=== PATIENT | male | born 1940 | race Caucasian/White ===

== ENCOUNTER 2022-04-05 11:42 | Outpatient (REF) | payer MEDICARE, OTHER, SELFPAY ==
[2022-04-05 12:41] LABS: Influenza A PCR NEGATIVE (Negative); Influenza B PCR NEGATIVE (Negative); Resp Syncy Virus RNA Qual PCR NEGATIVE (Negative); SARS COV2 PCR INHOUSE NEGATIVE (Negative)
== END 2022-04-05 11:43 | disposition home or self-care (01) ==
LOC: HO.LNP 11:42
PROVIDERS: Visit Provider Nurse Practitioner Family
DX: Z20.822 Contact with and (suspected) exposure to COVID-19 (principal); J06.9 Acute upper respiratory infection, unspecified
CPT/HCPCS: 0241U

== ENCOUNTER 2023-03-22 09:42 | Emergency (ER) | payer MEDICARE, OTHER, SELFPAY ==
--- NOTE | ~2023-03-22 | XR_ITS ---
EXAMINATION: XR CHEST CLINICAL INFORMATION: Cough and shortness of breath. COMPARISON: Chest x-ray to. TECHNIQUE: 2 views of the chest were obtained. FINDINGS: Large hiatal hernia. The cardiomediastinal silhouette is stable. The lungs are mildly hypoexpanded. No consolidation or effusion. No pulmonary edema. Degenerative changes in the shoulders. XR/XR chest 2V IMPRESSION: Large hiatal hernia. No focal pneumonia.
[2023-03-22 09:54] VITALS: BP 184/93; PULSE 66; RESP 20; TEMP 37; O2SAT 97; BMI 24.5
[2023-03-22 10:53] LABS: Influenza A PCR NEGATIVE (Negative); Influenza B PCR NEGATIVE (Negative); Resp Syncy Virus RNA Qual PCR NEGATIVE (Negative); SARS COV2 PCR INHOUSE NEGATIVE (Negative)
--- NOTE | 2023-03-22 12:21 | ED_ITS ---
HPI - URI/Sore Throat General Chief Complaint: Upper Respiratory Symptoms Stated Complaint: flu like symptoms/ chest pain Time Seen by Provider: 03/22/23 10:45 Source: patient Mode of arrival: ambulatory Limitations: no limitations History of Present Illness HPI Narrative: 82 yo male with history of hiatal hernia, HTN, GERD here with complaints of 1 week of chest congestion, body aches, cough and subjective fevers. Patient reports chronic shortness of breath due to a large hiatal hernia. He does not feel this is worsened. No chest pain, leg swelling or leg pain. Related Data Home Medications Medication Instructions Recorded Confirmed doxazosin 4 mg tablet 4 mg PO DAILY 05/04/21 04/04/22 pantoprazole 40 mg tablet,delayed 40 mg PO DAILY 05/04/21 04/04/22 release allopurinol 100 mg tablet 100 mg PO DAILY 08/09/21 04/04/22 lisinopril 10 mg tablet 10 mg PO DAILY 01/10/22 04/04/22 Previous Rx's Medication Instructions Recorded fluticasone propionate 50 1 spray intranasal DAILY #16 grams 06/27/22 mcg/actuation nasal spray,suspension cefpodoxime 200 mg tablet 200 mg PO BID #14 tabs 03/22/23 Allergies Allergy/AdvReac Type Severity Reaction Status Date / Time No Known Allergies Allergy Verified 03/22/23 09:56 Review of Systems Review of Systems: Yes all other systems are reviewed and are negative Constitutional: Constitutional: Reports no additional constitutional complaints, Reports body ache(s), Denies chills, Denies fever(s), Reports headache(s) and Denies weakness Eyes: Eyes: Reports no additional eye complaints and Denies change in vision ENT: Reports system reviewed and no additional complaints, except as documented, Denies dizziness, Reports headache(s), Denies nasal congestion, Denies nasal discharge and Denies neck pain Cardiovascular: Cardiovascular: Reports no additional cardiovascular complaints, Denies chest pain, Denies leg edema and Denies dyspnea Respiratory: Respiratory: Reports no additional respiratory complaints, Reports cough and Denies dyspnea Gastrointestinal: Gastrointestinal: Reports no additional gastrointestinal complaints, Denies abdominal pain, Denies diarrhea, Denies nausea and Denies vomiting Genitourinary: Genitourinary: Denies urinary incontinence Musculoskeletal: Musculoskeletal: Reports no additional musculoskeletal complaints, Denies back pain, Denies arthralgias, Denies joint swelling, Denies neck pain, Denies numbness and Denies tingling Integumentary/Breasts: Skin/Breast: Reports system reviewed and no additional complaints, except as docu and Denies rash Neurologic: Reports system reviewed and no additional complaints, except as documented, Denies Abnormal speech present, Denies dizziness, Reports headache(s), Denies numbness, Denies tingling and Denies weakness PMF Past Medical History Attestation statement: The following information was validated with the patient. 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[employer] ) Current occupational exposures/hazards: No Cognitive needs: No Hearing needs: No Vision needs: No Physical Exam Vital Signs: Vital Signs: Last Vital Signs Temp 98.6 F 03/22/23 09:54 Pulse 86 03/22/23 13:14 Resp 18 03/22/23 13:14 BP 184/93 H 03/22/23 09:54 Pulse Ox 97 03/22/23 09:54 O2 Del Method Room Air 03/22/23 09:54 BMI result Body Mass Index 24.5 Const: General: cooperative, healthy appearing, comfortable and no acute distress Orientation/consciousness: patient oriented x3 Limitations: no limitations HEENT: Head: Yes normal to inspection Ears: hearing grossly normal bilaterally General nose exam: Normal external nose present Face and sinus: Yes normal facial exam Mouth: Normal oral and palatal mucosa present Throat: Yes posterior oropharynx normal Eyes: General: appearance normal, both eyes and all related structures Pupils: Equal, round and reactive pupils present Neck: Neck: Yes normal visual inspection Chest: Chest palpation & inspection: normal inspection of the chest Resp: Effort & Inspection: normal respiratory effort Auscultation: rhonchi and wheezes Cardio: Rate: regular rate Rhythm: regular rhythm Peripheral pulses: Peripheral pulses 2+ throughout GI: Inspection: Yes normal to inspection Palpation (GI): Soft to palpation and nontender Auscultation: normal bowel sounds Back/Spine/Pelvis: Thoracic/Lumbar Spine: thoracic and lumbar spine normal to inspection Skin: General skin exam: no rashes or lesions noted Neuro: General: patient oriented x3, no focal motor deficits and normal sensation to monofilament Cranial nerves: Yes Equal, round and reactive pupils present Cognition (Neuro): normal cognition Speech: No Abnormal speech present Gait exam (Neuro): Normal gait present Motor exam (neuro): 5/5 motor strength present throughout Extrem: General: Yes normal to inspection, Yes no pedal edema and Yes no calf tenderness Course Course Course Narrative: X-ray shows a large hiatal hernia which is known. No focal pneumonia. Based on patient's clinical exam he may have C a P. Therefore I will treat him with a course of antibiotics and recommend he use albuterol p.r.n.. Reviewed worrisome signs and symptoms of when to return to the emergency room. Comfortable plan for discharge home. Medications Administered Discontinued Medications Generic Name Dose Route Start Last Admin Trade Name Freq PRN Reason Stop Dose Admin Albuterol Sulfate 2 puff 03/22/23 12:39 03/22/23 13:11 Albuterol Sulfate 90 Mcg 8 Gm Inhaler INHALE 03/22/23 12:40 2 puff ONCE ONE Administration Medical Decision Making Medical Decision Making [facility] Narrative: 82 yo male with history of hiatal hernia, HTN, GERD here with complaints of 1 week of chest congestion, body aches, cough and subjective fevers. Patient reports chronic shortness of breath due to a large hiatal hernia. He does not feel this is worsened. No chest pain, leg swelling or leg pain. -Wheezing/rhonchi LLL WIll need viral testing, CXR Differential Diagnosis Differential Diagnoses: The differential diagnosis associated with the presentation includes Pneumonia, viral syndrome low concern for PE- no hypoxia or tachypnea, no clinical findings concerning for DVT Admission/Observation Consideration of admission/observation: Escalation of care including admission/observation considered no hypoxia or tachypnea. Patient not requiring supplemental oxygen. No systemic signs or symptoms concerning for infection. Lab Data [facility] Lab Attestation statement: I reviewed the patient's lab results. Labs: Lab Results 03/22/23 Range/Units 09:59 Influenza Type A (PCR) NEGATIVE (Negative) Influenza Type B (PCR) NEGATIVE (Negative) RSV RNA Qual (PCR) NEGATIVE (Negative) SARS-CoV-2 RNA (RT-PCR) NEGATIVE (Negative) Independent Interpretation I performed an independent interpretation of an: Plain X-Ray Interpretation: I independently reviewed the x-ray and agree with the radiology report. Radiology Impression Discussion of test interpretation with radiology: I have reviewed the radiologist's reading. Radiologist Impression: [address] [address] XRay Report Signed Patient: Buzz Rosales MR#: [id number] : 1940 Acct:[id number] Age/Sex: 82 / M ADM Date: 03/22/23 Loc: HO.ED Attending Dr: Ordering Physician: Toby Gonzalez MD Date of Service: 03/22/23 Procedure(s): XR chest 2V Accession Number(s): [id number] cc: Toby Gonzalez MD; Syed Mccormick MD~ EXAMINATION: XR CHEST CLINICAL INFORMATION: Cough and shortness of breath. COMPARISON: Chest x-ray to. TECHNIQUE: 2 views of the chest were obtained. FINDINGS: Large hiatal hernia. The cardiomediastinal silhouette is stable. The lungs are mildly hypoexpanded. No consolidation or effusion. No pulmonary edema. Degenerative changes in the shoulders. XR/XR chest 2V IMPRESSION: Large hiatal hernia. No focal pneumonia. Discharge Plan Discharge Clinical Impression: Bronchitis Patient Disposition: Home, Self-Care Instructions: Acute Bronchitis (ED) Additional Instructions: use the inhaler 2 puffs every 4 hours as needed for cough or wheezing Take the antibiotics as prescribed For any continued symptoms please follow-up with your primary care doctor. Please return here for any worsening symptoms. Prescriptions: New cefpodoxime 200 mg tablet 200 mg PO BID Qty: 14 0RF Rx Instructions: must administer with a meal/food No Action fluticasone propionate 50 mcg/actuation spray,suspension 1 spray intranasal DAILY Qty: 16 1RF Rx Instructions: administer into each nostril pantoprazole 40 mg tablet,delayed release (DR/EC) 40 mg PO DAILY doxazosin 4 mg tablet 4 mg PO DAILY allopurinol 100 mg tablet 100 mg PO DAILY lisinopril 10 mg tablet 10 mg PO DAILY Referrals: Syed Mccormick MD [Primary Care Provider] - 5 days
--- NOTE | 2023-03-22 12:48 | PC.NURSE ---
respiratory called for teaching
[2023-03-22] MEDS: Albuterol Sulfate 90 MCG 8 GM INHALER 2 PUFF INHALE (13:11)
[2023-03-22 13:14] VITALS: PULSE 86; RESP 18; O2SAT 97
== END 2023-03-22 13:46 | disposition home or self-care (01) ==
PROVIDERS: Emergency Provider Emergency Medicine; PCP Family Medicine
DX: J40 Bronchitis, not specified as acute or chronic (principal); Z20.822 Contact with and (suspected) exposure to COVID-19; Z20.828 Contact with and (suspected) exposure to other viral communicable diseases; I10 Essential (primary) hypertension; K21.9 Gastro-esophageal reflux disease without esophagitis
CPT/HCPCS: 0241U; 71046; 94640; 99283; 99284

== ENCOUNTER 2023-08-12 13:15 | Outpatient (AMB) | payer MEDICARE, OTHER, SELFPAY ==
--- NOTE | 2023-08-12 13:22 | A.SPINEOV_ITS ---
Intake Visit Reasons: low back pain Intake Note: Mr. Rosales is here today c/o low back pain. Expressive Art Therapist Required: No Allergies No Known Allergies Allergy (Verified 03/22/23 09:56) Assessment & Plan Assessment & Plan (1) Spinal stenosis, lumbar region without neurogenic claudication: Code(s): M48.061 - Spinal stenosis, lumbar region without neurogenic claudication Category: Medical Plan Dear colleague On 08/12/2023 I saw Buzz Rosales for 2nd opinion. He self-referred with a chief complaint of low back pain and right leg weakness. HPI: This 82-year-old male had a lumbar decompression done by Dr. Leslie 3 years ago for back pain. The MRI shows an L3-4 and L4-5 decompression. He was relatively pain-free for 3 years when the back pain started to return. He had 3 epidural steroid injections and after the last 1 he developed bilateral proximal leg weakness, right more than left. He could not ambulate for 1 month. Over time the weakness gradually recovered but never fully. He has difficulty coming out of a chair due to proximal leg weakness. He had a mild drop foot which recovered. His 2nd complaint is back pain with walking and standing. He constantly has to walk in a flexed position to get some comfort. Sitting down is the best position. Takes extra-strength Tylenol for the back pain. He still works at [employer]: No major medical problems Medications: Tylenol p.r.n. Allergies: NKDA Social history: Nonsmoker Physical Exam: Pleasant male. He is unable to get out of a chair with his arms crossed. On individual testing there is no clear motor deficit. Sensory exam is intact. No pathological reflexes. He ambulates in a flexed position. Radiological Studies: MRI done at [facility] on 05/05/2023 shows an auto fusion of L4-5 and L1-L2. There is ongoing stenosis at L2-3. There is multilevel foraminal stenosis and multilevel degenerative disc disease. Impression/Plan: This patient is suffering from back pain without neurogenic claudication and a right L4 radiculopathy with weakness. I explained to the patient that a lumbar decompression for back pain only without radiation down his legs with walking and standing has very unpredictable results. I also do not have a surgical solution for his right L4 weakness. I do think that this should recover Barton over time. I explained his pathophysiology of the hand of the MRI findings. I answered all questions. Thank you for allowing me to participate in your patients care. total time spent was 50 minutes in counseling ,coordination of plan, personal review of imaging, and subsequent plan Remi Freeman MD, PhD Spine Fellowship Trained Neurosurgeon Director, [facility] Coding Level of Care Code New Pt Level 4 (37417) Diagnoses Spinal stenosis, lumbar region without neurogenic claudication M48.061
== END 2023-08-12 14:14 | disposition home or self-care (01) ==
PROVIDERS: PCP Family Medicine; Visit Provider Neurological Surgery
DX: M48.061 Spinal stenosis, lumbar region without neurogenic claudication (principal)
CPT/HCPCS: 99204

== ENCOUNTER → 2023-08-12 13:15 | Outpatient (BNVA) | payer MEDICARE, OTHER, SELFPAY | PROVIDERS: PCP Family Medicine; Visit Provider Neurological Surgery | DX: M54.50 Low back pain, unspecified (principal); M48.061 Spinal stenosis, lumbar region without neurogenic claudication | CPT/HCPCS: 99202 ==

== ENCOUNTER 2023-08-19 09:23 | Emergency (ER) | payer MEDICARE, OTHER, SELFPAY ==
--- NOTE | ~2023-08-19 | CT_ITS ---
EXAMINATION: CT CHEST WITHOUT CONTRAST CLINICAL INFORMATION: Chest trauma. Left-sided rib pain. COMPARISON: Chest x-ray (August 19, 2023 TECHNIQUE: Multidetector volumetric CT imaging of the chest was done. Axial MIP volume rendering provided. Sagittal and coronal reformatted images were obtained. This CT examination was performed using dose optimization techniques as appropriate, variously including the following: *Automated exposure control *Adjustment of mA and/or kV according to patient size (this includes techniques or standardized protocols for targeted exams where dose is matched to indication/reason for exam; i.e. extremities or head) *Use of iterative reconstruction technique DLP: 250 mGy-cm FINDINGS: LUNGS: Compressive atelectasis/consolidation with air bronchograms of the left lower lobe adjacent to the large hiatal hernia. Central bronchial airways are open. MEDIASTINUM: Right lung normally aerated. Large hiatal hernia containing most of the stomach. A loop of transverse colon. Heart size is normal. No pericardial effusion. Thoracic aorta unremarkable. CORONARY ARTERY CALCIFICATION: Coronary calcifications are present. PLEURA: No pleural effusion. AXILLA: No lymphadenopathy. UPPER ABDOMEN: Large hiatal hernia. No acute abnormality upper abdomen. No focal lesion visualized solid organs of the upper abdomen OSSEOUS STRUCTURES: No acute displaced rib fractures. There is subtle cortical buckling of the anterior seventh through 10th ribs which could be nondisplaced fractures. 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 Moderate to marked degenerative changes of the glenohumeral joints bilaterally. CT/CT chest wo IV con IMPRESSION: 1. Compressive atelectasis/consolidation with air bronchograms left lower lobe adjacent to the large hiatal hernia. 2. Large hiatal hernia containing most of the stomach and a loop of transverse colon. 3. No acute displaced rib fractures. There is subtle cortical buckling of the anterior seventh through 10th ribs which could be nondisplaced fractures. Fleischner guidelines were followed.
--- NOTE | ~2023-08-19 | XR_ITS ---
EXAMINATION: XR RIBS, LEFT CLINICAL INFORMATION: Left-sided pain COMPARISON: Chest radiograph 03/22/2023 TECHNIQUE: 3 views of the left ribs were obtained. FINDINGS: Large hiatal hernia containing bowel. No change. Left ribs intact. Advanced degenerative change in the left and right shoulder. Lungs grossly clear. No pneumothorax. XR/XR ribs LT min 3V w CXR1V IMPRESSION: No acute findings.
[2023-08-19 09:32] VITALS: BP 194/99; PULSE 63; RESP 18; TEMP 36.7; O2SAT 97; BMI 24.5
--- NOTE | 2023-08-19 13:26 | ED_ITS ---
HPI - General Adult General Chief complaint: General Medical Stated complaint: ? Broken Rib L Side Time Seen by Provider: 08/19/23 13:26 Source: patient Mode of arrival: ambulatory Limitations: no limitations History of Present Illness HPI narrative: This is an 82-year-old male history of hiatal hernia, hypertension, gout presenting to the emergency department complaints of left-sided rib pain since Friday, patient reports he reached into his washer, slipped and fell onto his left side since then has been having rib pain he states he thinks he heard a crack when this happened pain is worse with movement, laughing and coughing better at rest. Denies chest pain, shortness of breath, nausea, vomiting, abdominal pain, headache, vision changes, dizziness, weakness. Patient not on blood thinners. Patient requesting to leave from the moment he arrives he states it is taking too long. Related Data Home Medications ?Medication ?Instructions ?Recorded ?Confirmed doxazosin 4 mg tablet 4 mg PO DAILY 05/04/21 04/04/22 pantoprazole 40 mg tablet,delayed 40 mg PO DAILY 05/04/21 04/04/22 release allopurinol 100 mg tablet 100 mg PO DAILY 08/09/21 04/04/22 lisinopril 10 mg tablet 10 mg PO DAILY 01/10/22 04/04/22 Previous Rx's ?Medication ?Instructions ?Recorded fluticasone propionate 50 1 spray intranasal DAILY #16 grams 06/27/22 mcg/actuation nasal spray,suspension cefpodoxime 200 mg tablet 200 mg PO BID #14 tabs 03/22/23 acetaminophen 325 mg capsule 650 mg (2 x 325 mg) PO Q4H PRN 08/19/23 (Tylenol) pain #30 caps doxycycline hyclate 100 mg capsule 100 mg PO BID 7 days #14 caps 08/19/23 lidocaine 5 % topical patch 1 patch topical DAILY PRN pain #15 08/19/23 ea Allergies Allergy/AdvReac Type Severity Reaction Status Date / Time No Known Allergies Allergy Verified 08/19/23 09:36 Review of Systems Review of Systems: Yes all other systems are reviewed and are negative COUNT INCLUDES THE [facility] Past Medical History Attestation statement: The following information was validated with the patient. 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 Oriented X3.? No acute distress.? Head: Normocephalic, atraumatic, no step-offs or deformities Eyes: Pupils equal, round and reactive to light.? ENT: Pharynx normal.? Neck: Normal inspection.? Neck supple.? CVS: Normal heart rate and rhythm.? Pulses normal.?+ TTP to lateral aspect of left ribs 3-7 no overlying skin changes. No signs of flail chest or paradoxical breathing. Respiratory: No respiratory distress.? Breath sounds normal.? Abdomen: Soft and nontender.? Skin: Skin warm and dry.? Normal skin color.? Normal skin turgor.? Extremities: No lower extremity edema.? No calf ttp. 5/5 strength to bilateral upper and lower extremities Back: No midline tenderness, no C-spine tenderness, full range of motion, no CVA tenderness bilaterally Neuro: Oriented X 3.? No motor deficit.? No sensory deficit. CN 2-12 intact Course Course Course Narrative: This case was discussed with thoracic surgery who does recommend admission as well as consult to anesthesia for epidural for pain control. However patient unwilling to stay Reevaluation(s) Reevaluation #1: X-ray of the ribs no acute findings. CT scan pending. Time: 13:33 Reevaluation #2: CT scan showing compressive atelectasis/consolidation with air bronchograms left lower lobe will treat with antibiotics just in case as he does have presumed rib fractures, large hiatal hernia containing most of the stomach and loop of transverse colon, no acute displaced rib fractures however there is cortical buckling of the anterior 7th through 10th ribs which could represent nondisplaced fractures this is likely given the scenario. I did explain to patient that he should stay in the hospital for observation, pulmonary toilet, and possible antibiotics for developing pneumonia, he refuses to stay he verbalized understanding of risks and tells me it has a risk and willing to take . Patient was given an incentive spirometer and chemistry technologist as well as respiratory went over proper use of this. Patient verbalizes understanding and requests to leave. Will be leaving against medical advice. Educated patient on diagnosis and treatment plan, answered all question, patient verbalizes understanding. At this time patient will be discharged home, advised to return with new or worsening symptoms. Educated on worrisome signs and symptoms and when to return. At this time I feel comfortable discharge home. Time: 15:43 Medications Administered Discontinued Medications Generic Name Dose Route Start Last Admin Trade Name Mary PRN Reason Stop Dose Admin Acetaminophen 975 mg 08/19/23 13:33 08/19/23 14:16 Acetaminophen 325 Mg Tablet PO 08/19/23 13:34 975 mg ONCE ONE Administration Lidocaine 1 patch 08/19/23 13:33 08/19/23 14:16 Lidocaine 4 % Patch Adh..Patch TRANSDERMA 08/19/23 13:34 1 patch ONCE ONE Administration Protocol Lisinopril 10 mg 08/19/23 14:11 08/19/23 14:15 Lisinopril 10 Mg Tablet PO 08/19/23 14:12 10 mg ONCE ONE Administration Protocol Medical Decision Making Medical Decision Making [facility] Narrative: 1331 82 yo m presents w/ left sided rib pain since friday slipped into his washing machine and is having pain since then Physical exam significant for TTP to lateral aspect of left ribs 3-7 no overlying skin changes. No signs of flail chest or paradoxical breathing. History and physical exam concerning for contusion versus rib fracture/dislocation. Unlikely flail chest, pneumothorax, hemorrhage. No head strike or loss of consciousness unlikely intracranial hemorrhage, stroke, posterior stroke. No other signs of traumatic injury to chest, abdomen or pelvis. Plan imaging Differential Diagnosis Differential Diagnoses: The differential diagnosis associated with the presentation includes History and physical exam concerning for contusion versus rib fracture/dislocation. Unlikely flail chest, pneumothorax, hemorrhage. No head strike or loss of consciousness unlikely intracranial hemorrhage, stroke, posterior stroke. No other signs of traumatic injury to chest, abdomen or pelvis. Admission/Observation Consideration of admission/observation: Escalation of care including admission/observation considered No indication Independent Interpretation I performed an independent interpretation of an: Plain X-Ray (XR/XR ribs LT min 3V w CXR1V IMPRESSION: No acute findings. ) and CT Scan (CT/CT chest wo IV con IMPRESSION: 1. Compressive atelectasis/consolidation with air bronchograms left lower lobe adjacent to the large hiatal hernia. 2. Large hiatal hernia containing most of the stomach and a loop of transverse colon. 3. No acute displaced rib fractures. There is subtle cortic) Radiology Impression Discussion of test interpretation with radiology: I have reviewed the radiologist's reading. External Record Review External record reviewed: Inpatient record, Office record, Outpatient record, Prior outpatient labs, Prior outpatient radiology, Primary care record and Outside ED record Chronic Conditions Patient?s care impacted by: Hypertension and Other (Gout, spinal stenosis) Critical Care Time Critical Care Time Critical Care Time: Yes Total Critical Care Time: 35 Attestation: I attest to this time spent taking care of the patient, obtaining history, physical, reviewing labs, imaging, speaking to my attending, specialist or hospitalist. Discharge Plan Discharge Clinical Impression: Contusion of rib on left side, Pneumonia, Fracture, ribs, Hernia, hiatal, Left against medical advice Patient Disposition: Left Against Medical Advice Instructions: How to Use an Incentive Spirometer (ED), Hiatal Hernia (ED), Contusion in Adults (ED), Pneumonia (ED), Rib Contusion (ED) Additional Instructions: Take your medications as prescribed. If you were prescribed antibiotics today, it is important that you take your medication to their entirety, do not skip any doses, do not finish them early. Follow-up with your primary care provider this week. Return to the emergency department with new or worsening symptoms. Such as fevers, chills, chest pain, shortness of breath, nausea, vomiting, dizziness, headache, vision changes, lethargy In case of emergency call 911 XR/XR ribs LT min 3V w CXR1V IMPRESSION: No acute findings. CT/CT chest wo IV con IMPRESSION: 1. Compressive atelectasis/consolidation with air bronchograms left lower lobe adjacent to the large hiatal hernia. 2. Large hiatal hernia containing most of the stomach and a loop of transverse colon. 3. No acute displaced rib fractures. There is subtle cortical buckling of the anterior seventh through 10th ribs which could be nondisplaced fractures. Fleischner guidelines were followed. Prescriptions: New lidocaine 5 % adhesive patch,medicated 1 patch topical DAILY PRN (Reason: pain) Qty: 15 0RF Rx Instructions: leave on most painful area for up to 12 hrs acetaminophen [Tylenol] 325 mg capsule 650 mg PO Q4H PRN (Reason: pain) Qty: 30 0RF doxycycline hyclate 100 mg capsule 100 mg PO BID 7 Days Qty: 14 0RF No Action cefpodoxime 200 mg tablet 200 mg PO BID Qty: 14 0RF Rx Instructions: must administer with a meal/food fluticasone propionate 50 mcg/actuation spray,suspension 1 spray intranasal DAILY Qty: 16 1RF Rx Instructions: administer into each nostril pantoprazole 40 mg tablet,delayed release (DR/EC) 40 mg PO DAILY doxazosin 4 mg tablet 4 mg PO DAILY allopurinol 100 mg tablet 100 mg PO DAILY lisinopril 10 mg tablet 10 mg PO DAILY Referrals: Syed Mccormick MD [Primary Care Provider] - 2 days Stand Alone Forms: Against Medical Advice Print Language: Peruvian
[2023-08-19 13:55] VITALS: BP 204/98; PULSE 80; RESP 20; TEMP 36.6; O2SAT 94
[2023-08-19 14:15] VITALS: BP 208/98
[2023-08-19] MEDS: lisinopriL 10 MG TABLET PO (14:15)
[2023-08-19] MEDS: Lidocaine 4 % Patch ADH..PATCH 1 PATCH TRANSDERMA (14:16)
[2023-08-19] MEDS: Acetaminophen 325 MG TABLET 975 MG PO (14:16)
--- NOTE | 2023-08-19 16:48 | PC.NURSE ---
pt BP high, medicated per mar for HTN. on discharge/pt leaving AMA, pt BP noted to still be significantly elevated, VALENCIA Barcenas aware.
[2023-08-19 16:49] VITALS: BP 199/97; PULSE 62; RESP 16; TEMP 36.6; O2SAT 96
[2023-08-19 16:52] VITALS: BP 199/97; PULSE 62; RESP 16; TEMP 36.4; O2SAT 96
== END 2023-08-19 16:53 | disposition left against medical advice (07) ==
PROVIDERS: Emergency Provider Emergency Medicine; PCP Family Medicine
DX: S20.212A Contusion of left front wall of thorax, initial encounter (principal); S22.39XA Fracture of one rib, unspecified side, initial encounter for closed fracture; J18.9 Pneumonia, unspecified organism; K44.9 Diaphragmatic hernia without obstruction or gangrene; I10 Essential (primary) hypertension; W01.198A Fall on same level from slipping, tripping and stumbling with subsequent striking against other object, initial encounter; Y93.9 Activity, unspecified; Y92.9 Unspecified place or not applicable; Y99.9 Unspecified external cause status
CPT/HCPCS: 71101; 71250; 99284